=== PATIENT | female | born 1980 | race Caucasian/White ===

== ENCOUNTER 2018-04-14 17:15 | Inpatient (IN) | payer OTHER ==
[2018-04-14] MEDS ORDERED: DINOPROSTONE 10 MG VAGINAL SUPPOSITORY VG ONE (17:56)
--- NOTE | 2018-04-14 17:56 | PN ---
Progress Note (short form) - Note Progress Note: cx 1cm 25 vx -3 mi, fhr cat 1, irregular mild contraction ,not felt by patient , cervidil risks discussed cervidil inserted
--- NOTE | 2018-04-14 17:56 | HP ---
Past Medical History - Primary Care Physician PCP:: Deshawn Mcwilliams - Admission Chief Complaint: 40 weeks, AMA, oligo for cervidil induction History of Present Illness: 37 yo f 40 weeks gestation with ELIOT 7 admitted for cervidil induction, cx 1 cm 25, vx -3 mi fhr cat 1, no contraction, , risks of cervidil has discussed with patient . History Source: Patient Limitations to Obtaining History: No Limitations - Past Medical History ...: 2 ...Para: 1 ...Term: 1 ...: 0 ...Spon : 0 ...Induced : 0 ...Multiple Gestation: 0 ...EDC by [facility]: 04/14/18 - Past Surgical History Past Surgical History: Yes: Liver Transplant Hx Myomectomy: No Hx Transabdominal Cerclage: No Additional Surgical History: leep cone biopsy - Smoking History Smoking history: Never smoked Have you smoked in the past 12 months: No - Alcohol/Substance Use Hx Alcohol Use: Yes (RARELY) - Social History Usual Living Arrangement: Yes: With Spouse History of Recent Travel: No Home Medications - Allergies Allergies/Adverse Reactions: Allergies Allergy/AdvReac Type Severity Reaction Status Date / Time No Known Allergies Allergy Verified 04/14/18 18:28 - Home Medications Home Medications: Ambulatory Orders Multivitamin [Multivitamins] 1 each PO DAILY 12/18/11 Docosahexanoic Acid/Epa [Fish Oil Softgel] 1 each PO DAILY 12/25/11 Review of Systems - Review of Systems Constitutional: reports: No Symptoms Eyes: reports: No Symptoms HENT: reports: No Symptoms Neck: reports: No Symptoms Cardiovascular: reports: No Symptoms Respiratory: reports: No Symptoms Gastrointestinal: reports: No Symptoms Genitourinary: reports: No Symptoms Breasts: reports: No Symptoms Reported Musculoskeletal: reports: No Symptoms Integumentary: reports: No Symptoms Neurological: reports: No Symptoms Endocrine: reports: No Symptoms Hematology/Lymphatic: reports: No Symptoms Psychiatric: reports: No Symptoms Physical Exam - Maternity Constitutional: Yes: Well Nourished, No Distress, Calm Eyes: Yes: WNL, Conjunctiva Clear, EOM Intact HENT: Yes: WNL, Atraumatic, Normocephalic Neck: Yes: WNL, Supple, Trachea Midline Cardiovascular: Yes: WNL, Regular Rate and Rhythm Breast(s): Yes: WNL - Abdominal Exam/OB Fundal Height: 40 Number of Fetuses: Single Presentation: Vertex Contractions: No Regularity: Irritability Intensity: Unaware Monitor Mode: External Heart Rate Location: LLQ Accelerations: Uniform Decelerations: None - Vaginal Exam/OB Vaginal Bleediing: No Speculum Exam: No Dilatation (cm): 1cm Effacement (%): 25 Amniotic Membrane Status: Intact Nitrazine Test: Negative Presentation: Vertex/Position Station: -3 - Physical Exam Musculoskeletal: Yes: WNL Extremities: Yes: WNL Edema: Yes Edema: LLE: Trace, RLE: Trace Deep Tendon Reflex Grade: Normal +2 ...Motor Strength: WNL Psychiatric: Yes: WNL Hemorrhage Risk Assessment - Risk Factors Medium Risk Factors: Yes: None High Risk Factors: Yes: None Risk Score: 1 Risk Level: Medium Risk Problem List - Problems (1) Post term over 40 weeks Code(s): O48.0 - POST-TERM (2) Oligohydramnios Code(s): O41.00X0 - OLIGOHYDRAMNIOS, UNSP TRIMESTER, NOT APPLICABLE OR UNSP Qualifiers: Fetus number: single or unspecified fetus Trimester: third trimester Qualified Code(s): O41.03X0 - Oligohydramnios, third trimester, not applicable or unspecified (3) Advanced maternal age during Code(s): [id number] - Assessment/Plan admit FHM cervidil induction, risks and benefit discussed GBS negative
[2018-04-14 18:09] VITALS: BMI 28.6
[2018-04-14 19:08] LABS: BASO % 0.9 % (0-2.0); EOS % 0.7 % (0-4.5); HEMATOCRIT 38.6 % (32.4-45.2); HEMOGLOBIN 13.5 GM/dL (10.7-15.3); LYMPH % 18.7 % (8-40); MCH 30.3 pg (25.7-33.7); MCHC 34.8 g/dl (32.0-36.0); MEAN CELL VOLUME 87.1 fl (80-96); MONO % 12.7 % (3.8-10.2); PLATELET COUNT 169 K/MM3 (134-434); RBC 4.43 M/mm3 (3.60-5.2); RDW 13.9 % (11.6-15.6); WHITE BLOOD COUNT 8.2 K/mm3 (4.0-10.0)
[2018-04-14 19:21] LABS: PROTHROMBIN TIME (PATIENT) 11.8 SEC (9.7-13.0)
[2018-04-14 19:24] LABS: ACTIVATED PTT 26.4 SECONDS (25.2-36.5)
[2018-04-14] MEDS ORDERED: PROMETHAZINE HCL 25 MG/1 ML VIAL IVPUSH ONE (19:30)
[2018-04-14] MEDS ORDERED: BUTORPHANOL TARTRATE 1 MG/ML VIAL IVPUSH PRN (19:30)
[2018-04-14 19:33] LABS: ANION GAP 8 MMOL/L (8-16); BLOOD UREA NITROGEN 8 mg/dL (7-18); CALCIUM 8.8 mg/dL (8.5-10.1); CHLORIDE 106 mmol/L (98-107); CO2 24 mmol/L (21-32); CREATININE 0.5 mg/dL (0.55-1.3); GLUCOSE,RANDOM 58 mg/dL (74-106); POTASSIUM 4.1 mmol/L (3.5-5.1); SODIUM 137 mmol/L (136-145)
[2018-04-14] MEDS ORDERED: DEXTROSE 5%-LACTATED RINGERS 1,000 ML IV SCH (19:45)
[2018-04-15] MEDS ORDERED: BUTORPHANOL TARTRATE 1 MG/ML VIAL ONE (03:19)
[2018-04-15] MEDS ORDERED: PROMETHAZINE HCL 25 MG/1 ML VIAL ONE (03:20)
[2018-04-15] MEDS ORDERED: BUTORPHANOL TARTRATE 1 MG/ML VIAL IVPB ONE (03:45)
[2018-04-15] MEDS ORDERED: ELECTROLYTE-148 SOLN 1,000 ML IV SCH ×2 (03:45→09:45)
--- NOTE | 2018-04-15 09:32 | PN ---
Progress Note (short form) - Note Progress Note: cx 3 cm , 80 vx -1 mr, clear, fhr cat 1, irregular contraction, pitocin discussed , agreed ,wants epidural Problem List - Problems (1) Post term over 40 weeks Code(s): O48.0 - POST-TERM (2) Oligohydramnios Code(s): O41.00X0 - OLIGOHYDRAMNIOS, UNSP TRIMESTER, NOT APPLICABLE OR UNSP Qualifiers: Fetus number: single or unspecified fetus Trimester: third trimester Qualified Code(s): O41.03X0 - Oligohydramnios, third trimester, not applicable or unspecified (3) Advanced maternal age during Code(s): [id number] -
[2018-04-15] MEDS ORDERED: FENTANYL/BUPIVACAINE/NS/PF - PCEA - 50 ML DISP.SYRIN EP ONE (09:44)
[2018-04-15] MEDS ORDERED: OXYTOCIN 30 UNITS in 0.9% NS 30 UNIT/500 ML INFUS.BAG IVPB SCH (09:45)
[2018-04-15] MEDS ORDERED: FENTANYL/BUPIVACAINE/NS/PF - PCEA - 50 ML DISP.SYRIN EP SCH (10:30)
[2018-04-15] MEDS ORDERED: OXYTOCIN 30 UNITS in 0.9% NS 30 UNIT/500 ML INFUS.BAG IVPB ONE (10:43)
[2018-04-15] MEDS ORDERED: LIDOCAINE HCL 1% PRESERVATIVE FREE - 30ML VIAL ONE (12:45)
[2018-04-15] MEDS ORDERED: OXYTOCIN 20 UNITS in 0.9% NS 20 UNIT/1,000 ML INFUS.BAG IV ONE (12:45)
[2018-04-15] MEDS ORDERED: METHYLERGONOVINE MALEATE 0.2 MG/1 ML AMP IM PRN (13:10)
[2018-04-15] MEDS ORDERED: BENZOCAINE 28 GM HEMORRHOIDAL OINTMENT TP PRN (13:10)
[2018-04-15] MEDS ORDERED: BENZOCAINE 20% 57 GM BOTTLE TP PRN (13:10)
[2018-04-15] MEDS ORDERED: WITCH HAZEL 50% (TUCKS) 40 PAD/JAR PAD TP PRN (13:10)
[2018-04-15] MEDS ORDERED: BISACODYL 10 MG SUPP.RECT RC PRN (13:10)
[2018-04-15] MEDS ORDERED: ACETAMINOPHEN 325 MG TABLET (FP) PO PRN (13:10)
--- NOTE | 2018-04-15 13:14 | PN ---
Delivery - Delivery Vaginal Delivery: Spontaneous Episiotomy/Laceration: None (head delivered DARNELL, cord around nech clamped and cut, ant, posterior shoulder delivered with no difficulty, live baby girl, 9/9 , no episiotomy, no complication. cord blood collected EBL 300cc) Delivery, Single - Feeding Plan Initial Plan: Elected not to breastfeed exclusively throughout hospitalization
[2018-04-15] MEDS ORDERED: D5W-LR W/ 20 UNITS OXYTOCIN 20 UNIT/1,000 ML INFUS.BAG IV SCH (13:15)
[2018-04-15] MEDS ORDERED: OXYTOCIN 20 UNITS in 0.9% NS 20 UNIT/1,000 ML INFUS.BAG IV SCH (13:15)
--- NOTE | 2018-04-15 14:57 | DS ---
Physical Exam-EDUCATION LIAISON Vital Signs: Vital Signs Temperature 98.2 F 04/15/18 13:45 Pulse Rate 80 04/15/18 14:00 Respiratory Rate 18 04/15/18 14:00 Blood Pressure 113/64 04/15/18 14:00 O2 Sat by Pulse Oximetry (%) 100 04/15/18 12:45 ....Post : Yes: Uterus firm, Uterus non-tender, Slight lochia rubra Edema: No Labs: CBC, BMP 04/14/18 18:30 04/14/18 18:30 Delivery - Delivery Vaginal Delivery: Spontaneous Type of Anesthesia: Epidural Episiotomy/Laceration: None EBL (cc): 300 Delivery, Single - Stages of Labor Date 1st Stage Initiatied: 04/15/18 Time 1st Stage Initiated: 03:00 Date 2nd Stage Initiated: 04/15/18 Time 2nd Stage Initiated: 12:45 Date of Delivery: 04/15/18 Time of Delivery: 13:00 Time Placenta Delivered: 13:05 Placenta: Yes: Spontaneous - Condition of Infant Operational Review Sergeant/Photogrammetrist Present: No Gender: Female Weight: 6 lb 11 oz Position: Right, OA Total Hours ROM (Hrs/Mins): 10/25 - 1 Minute Total Score: 9 5 Minutes Total Score: 9 - Feeding Plan Initial Plan: Elected not to breastfeed exclusively throughout hospitalization Discharge Summary Reason For Visit: INDUCTION OF LABOR Current Active Problems Advanced maternal age during (Acute) Oligohydramnios (Acute) Post term over 40 weeks (Acute) Procedures: Principal: Hospital Course: no complication - Instructions - Home Medications Comprehensive Discharge Medication List: Ambulatory Orders Multivitamin [Multivitamins] 1 each PO DAILY 12/18/11 Docosahexanoic Acid/Epa [Fish Oil Softgel] 1 each PO DAILY 12/25/11
[2018-04-15] MEDS: FERROUS SO4 325 MG TABLET (FP) PO SCH (22:40)
[2018-04-16] MEDS: IBUPROFEN 600 MG TABLET (FP) PO PRN (01:05)
[2018-04-16 07:36] LABS: BASO % 1.4 % (0-2.0); EOS % 1.6 % (0-4.5); HEMATOCRIT 38.8 % (32.4-45.2); HEMOGLOBIN 12.7 GM/dL (10.7-15.3); LYMPH % 18.8 % (8-40); MCHC 32.8 g/dl (32.0-36.0); MEAN CELL VOLUME 88.5 fl (80-96); MEAN PLT VOLUME 8.9 fl (7.5-11.1); MONO % 8.6 % (3.8-10.2); NEUT % 69.6 % (42.8-82.8); PLATELET COUNT 148 K/MM3 (134-434); RBC 4.39 M/mm3 (3.60-5.2); RDW 14.1 % (11.6-15.6); WHITE BLOOD COUNT 10.7 K/mm3 (4.0-10.0)
[2018-04-16] MEDS: FERROUS SO4 325 MG TABLET (FP) PO SCH ×2 (09:50→22:05)
[2018-04-16] MEDS: PRENATAL VITAMINS W/ FOLIC ACID TABLET (FP) PO SCH (09:50)
--- NOTE | 2018-04-16 14:32 | PN ---
Post Progress Note - Subjective Subjective: Patient without acute complaints. Reports tolerating oral intake without nausea or vomiting. Ambulating without dizziness. Denies fevers or chills. Pain well controlled with oral pain medication. without issue. Passing flatus, no BM. Post Day: 1 Type of Delivery: Vital Signs: Vital Signs Temperature 98.3 F 04/16/18 10:00 Pulse Rate 83 04/16/18 10:00 Respiratory Rate 20 04/16/18 10:00 Blood Pressure 113/71 04/16/18 10:00 O2 Sat by Pulse Oximetry (%) 100 04/15/18 12:45 Breast Exam: Yes: Soft Uterus: Yes: Fundus Firm, Fundus below umbilicus, Non-tender Abdomen/GI: Yes: Abdomen soft, Passing flatus, Tolerating PO Lochia: Yes: Rubra Lochia, amount: Small Extremities: Yes: Calves non-tender Perineum: Yes: Intact Activity: Ambulating - Labs Labs: CBC WBC 10.7 K/mm3 (4.0-10.0) H 04/16/18 06:30 RBC 4.39 M/mm3 (3.60-5.2) 04/16/18 06:30 Hgb 12.7 GM/dL (10.7-15.3) 04/16/18 06:30 Hct 38.8 % (32.4-45.2) 04/16/18 06:30 MCV 88.5 fl (80-96) 04/16/18 06:30 MCH 29.0 pg (25.7-33.7) 04/16/18 06:30 MCHC 32.8 g/dl (32.0-36.0) 04/16/18 06:30 RDW 14.1 % (11.6-15.6) 04/16/18 06:30 Plt Count 148 K/MM3 (134-434) 04/16/18 06:30 MPV 8.9 fl (7.5-11.1) 04/16/18 06:30 Absolute Neuts (auto) 7.4 K/mm3 (1.5-8.0) 04/16/18 06:30 Neutrophils % 69.6 % (42.8-82.8) 04/16/18 06:30 Lymphocytes % 18.8 % (8-40) 04/16/18 06:30 Monocytes % 8.6 % (3.8-10.2) 04/16/18 06:30 Eosinophils % 1.6 % (0-4.5) D 04/16/18 06:30 Basophils % 1.4 % (0-2.0) 04/16/18 06:30 Nucleated RBC % 0 % (0-0) 04/16/18 06:30 Assessment/Plan 37yo s/p , doing well stable, afebrile. Asymptomatic for anemia. RhoGam given care instructions reviewed. Continue routine care. Ambulation encouraged Discharge instruction reviewed.
[2018-04-16 14:59] VITALS: TEMP 97.8
[2018-04-16] MEDS ORDERED: SENNOSIDES/DOCUSATE COMBO (SENNA PLUS) TABLET (UD) PO PRN (22:00)
[2018-04-17] MEDS: IBUPROFEN 600 MG TABLET (FP) PO PRN (00:20)
--- NOTE | 2018-04-17 08:04 | PN ---
Post Progress Note - Subjective Subjective: Patient without acute complaints. Reports tolerating oral intake without nausea or vomiting. Ambulating without dizziness. Denies fevers or chills. Pain well controlled with oral pain medication. without difficulty. Passing flatus. Post Day: 2 Type of Delivery: Vital Signs: Vital Signs Temperature 97.8 F 04/16/18 20:40 Pulse Rate 88 04/16/18 20:40 Respiratory Rate 18 04/16/18 20:40 Blood Pressure 112/58 L 04/16/18 20:40 O2 Sat by Pulse Oximetry (%) 100 04/15/18 12:45 Breast Exam: Yes: Engorged Uterus: Yes: Fundus Firm Abdomen/GI: Yes: Abdomen soft, Passing flatus, Tolerating PO. No: Abdominal Distention, Tender Lochia: Yes: Serosa Lochia, amount: Small Extremities: Yes: Calves non-tender, Edema (trace) Perineum: Yes: Intact Activity: Ambulating - Labs Labs: CBC WBC 10.7 K/mm3 (4.0-10.0) H 04/16/18 06:30 RBC 4.39 M/mm3 (3.60-5.2) 04/16/18 06:30 Hgb 12.7 GM/dL (10.7-15.3) 04/16/18 06:30 Hct 38.8 % (32.4-45.2) 04/16/18 06:30 MCV 88.5 fl (80-96) 04/16/18 06:30 MCH 29.0 pg (25.7-33.7) 04/16/18 06:30 MCHC 32.8 g/dl (32.0-36.0) 04/16/18 06:30 RDW 14.1 % (11.6-15.6) 04/16/18 06:30 Plt Count 148 K/MM3 (134-434) 04/16/18 06:30 MPV 8.9 fl (7.5-11.1) 04/16/18 06:30 Absolute Neuts (auto) 7.4 K/mm3 (1.5-8.0) 04/16/18 06:30 Neutrophils % 69.6 % (42.8-82.8) 04/16/18 06:30 Lymphocytes % 18.8 % (8-40) 04/16/18 06:30 Monocytes % 8.6 % (3.8-10.2) 04/16/18 06:30 Eosinophils % 1.6 % (0-4.5) D 04/16/18 06:30 Basophils % 1.4 % (0-2.0) 04/16/18 06:30 Nucleated RBC % 0 % (0-0) 04/16/18 06:30 Assessment/Plan 37 yo PPD # 2 s/p , afebrile, vital signs stable, doing well 1. Patient stable for discharge home today. 2. Patient encouraged to contact MD for: - Severe pain not controlled by oral pain medication - Fevers or chills - Nausea or vomiting, intolerance of oral intake 3. Patient to follow up in office in 4-6 weeks for visit
[2018-04-17 08:37] VITALS: BP 129/79; PULSE 68
[2018-04-17] MEDS: PRENATAL VITAMINS W/ FOLIC ACID TABLET (FP) PO SCH (09:13)
[2018-04-17] MEDS: FERROUS SO4 325 MG TABLET (FP) PO SCH (09:13)
== END 2018-04-17 13:50 | disposition home or self-care (01) | DRG 806 ==
LOC: JLDR 17:15 → J3W 04-15 14:46
PROVIDERS: ADMIT Obstetrics & Gynecology; ATTEND Obstetrics & Gynecology
PROC: 3E0P7VZ Introduction of Hormone into Female Reproductive, Via Natural or Artificial Opening (ICD-10-PCS; 2018-04-14)
PROC: 10E0XZZ Delivery of Products of Conception, External Approach (ICD-10-PCS; principal; 2018-04-15)
DX: O48.0 Post-term pregnancy (principal); O41.03X0 Oligohydramnios, third trimester, not applicable or unspecified; Z37.0 Single live birth; Z3A.40 40 weeks gestation of pregnancy
CPT/HCPCS: 36415; 59409; 80048; 85025; 85461; 85610; 85730; 86593; 86850; 86900; 86901; 86999